=== PATIENT | female | born 1980 | race Caucasian/White ===

== ENCOUNTER → 2024-12-22 09:20 | Outpatient (REF) | payer OTHER, SELFPAY | LOC: WDC 09:20 | PROVIDERS: ATTENDING PHYSICIAN Student in an Organized Health Care Education/Training Program | DX: N63.20 Unspecified lump in the left breast, unspecified quadrant (principal); N63.42 Unspecified lump in left breast, subareolar | CPT/HCPCS: 76642; 77062; 77066 ==

== ENCOUNTER → 2025-05-18 08:41 | Outpatient (REF) | payer OTHER, SELFPAY | LOC: WDC 08:41 | PROVIDERS: ATTENDING PHYSICIAN Surgery; FAMILY PHYSICIAN Student in an Organized Health Care Education/Training Program | DX: R92.2 Inconclusive mammogram (principal) | CPT/HCPCS: 76641 ==

== ENCOUNTER → 2025-07-07 10:50 | Outpatient (REF) | payer OTHER, SELFPAY | LOC: HWRAD 10:50 | PROVIDERS: ATTENDING PHYSICIAN Student in an Organized Health Care Education/Training Program | DX: R76.11 Nonspecific reaction to tuberculin skin test without active tuberculosis (principal) | CPT/HCPCS: 71046 ==

== ENCOUNTER → 2025-07-11 08:44 | Outpatient (REF) | payer OTHER, SELFPAY | LOC: HWRAD 08:44 | PROVIDERS: ATTENDING PHYSICIAN Student in an Organized Health Care Education/Training Program | DX: R93.89 Abnormal findings on diagnostic imaging of other specified body structures (principal); R91.1 Solitary pulmonary nodule | CPT/HCPCS: 71250 ==

== ENCOUNTER 2025-07-25 06:06 | Day surgery (SDC) | payer OTHER, SELFPAY ==
[2025-07-22 14:27] LABS: Blood Urea Nitrogen 10 mg/dl (7-17); Calcium 8.9 mg/dl (8.4-10.2); Carbon Dioxide 26 mmol/L (22-30); Chloride 107 mmol/L (98-107); Glucose 91 mg/dl (70-99); Potassium 4.2 mmol/L (3.5-5.1); Sodium 139 mmol/L (135-145); eGFR > 60.00
[2025-07-25] VITALS (10 sets, daily range): BP systolic 97–139; BP diastolic 62–81; BMI 23.3
[2025-07-25] MEDS: NSS 500 IV (08:45)
== END 2025-07-25 15:07 | disposition home or self-care (01) ==
LOC: SDS 06:06
PROVIDERS: ATTENDING PHYSICIAN Internal Medicine Critical Care Medicine
DX: D14.31 Benign neoplasm of right bronchus and lung (principal); D14.32 Benign neoplasm of left bronchus and lung; J98.09 Other diseases of bronchus, not elsewhere classified; R84.9 Unspecified abnormal finding in specimens from respiratory organs and thorax; R93.3 Abnormal findings on diagnostic imaging of other parts of digestive tract; R91.1 Solitary pulmonary nodule; J98.4 Other disorders of lung; J95.61 Intraoperative hemorrhage and hematoma of a respiratory system organ or structure complicating a respiratory system procedure; Z72.0 Tobacco use
CPT/HCPCS: 31629; 31627; 31654; 31624; 31623; 36415; 71045; 76000; 80048; 87015; 87070; 87102; 87116; 87205; 88112; 88172; 88173; 88305; 93005; 94640; C1887